=== PATIENT | male | born 1970 | race Caucasian/White ===

== ENCOUNTER 2020-09-28 18:59 | Emergency (ER) | payer BC, OTHER ==
[~2020-09-28 18:59] MED LIST: Iopamidol-370 76% 500 ML 1 ML ONE
[2020-09-28 19:40] LABS: #Basophils 0.1 thou/uL (0.0-0.2); #Lymphocytes 1.3 thou/uL (1.20-3.40); #Monocytes 0.8 thou/uL (0.11-0.59); #Neutrophils 10.3 thou/uL (1.40-6.50); %Basophils 0.4 % (0.0-1.0); %Eosinophils 0.3 % (0.0-10.0); %Lymphocytes 10.5 % (21.0-51.0); %Monocytes 6.3 % (0.0-10.0); %Neutrophils 82.5 % (42.0-75.0); Hemoglobin 14.8 g/dL (14.0-18.0); Mean Corpuscular HGB CONC 33.7 g/dL (32.0-36.0); Mean Platelet Volume 8.5 fL (7.4-10.4); Platelet Count 263 thou/uL (130-400); RBC Distribution Width 11.7 % (11.5-14.5); Red Blood Cell (RBC) Count 4.95 mill/uL (4.70-6.10); White Blood Cell (WBC) Count 12.5 thou/uL (4.8-10.8)
--- NOTE | 2020-09-28 19:44 | RAD ---
FRONTAL RADIOGRAPH CHEST: 09/28/20 COMPARISON: None. HISTORY: Epigastric pain, left sided chest pain. FINDINGS: No pneumothorax, pleural fluid, focal consolidation, or alveolar edema. Heart and mediastinal contour s demonstrate no acute findings. IMPRESSION: No acute findings. POS: CONNIE
[2020-09-28 19:57] LABS: ALT (SGPT) 89 U/L (8-55); AST (SGOT) 130 U/L (5-34); Albumin 4.1 g/dL (3.5-5.0); Alkaline Phosphatase 71 U/L (40-110); Anion Gap 16 mmol/L (10-20); BUN (Urea Nitrogen) 16 mg/dL (8.4-25.7); Bilirubin, Total 1.4 mg/dL (0.2-1.2); CK (CPK) 112 U/L (30-200); Calc. Creatinine Clearance 0 mL/min (70-130); Calcium 9.2 mg/dL (7.8-10.44); Carbon Dioxide 25 mmol/L (22-29); Chloride 104 mmol/L (98-107); Globulin 3.1 g/dL (2.4-3.5); Glucose 169 mg/dL (70-105); Potassium 3.9 mmol/L (3.5-5.1); Protein, Total 7.2 g/dL (6.0-8.3); Sodium 141 mmol/L (136-145)
[2020-09-28] MEDS ORDERED: Ondansetron PF 4 MG/2 ML Vial ONE (20:10)
[2020-09-28] MEDS ORDERED: Morphine 4 MG/ML VIAL ONE (20:10)
[2020-09-28] MEDS ORDERED: Ketorolac Tromethamine 30 MG/ML VIAL ONE (20:10)
[2020-09-28 23:39] LABS: ALT (SGPT) 242 U/L (8-55); AST (SGOT) 325 U/L (5-34); Albumin 3.9 g/dL (3.5-5.0); Alkaline Phosphatase 76 U/L (40-110); Anion Gap 15 mmol/L (10-20); BUN (Urea Nitrogen) 18 mg/dL (8.4-25.7); Bilirubin, Total 1.8 mg/dL (0.2-1.2); Calc. Creatinine Clearance 0 mL/min (70-130); Calcium 8.7 mg/dL (7.8-10.44); Carbon Dioxide 25 mmol/L (22-29); Chloride 106 mmol/L (98-107); Globulin 2.9 g/dL (2.4-3.5); Glucose 132 mg/dL (70-105); Potassium 3.7 mmol/L (3.5-5.1); Protein, Total 6.8 g/dL (6.0-8.3); Sodium 142 mmol/L (136-145)
[2020-09-29] MEDS ORDERED: Morphine 4 MG/ML VIAL ONE (00:32)
--- NOTE | 2020-09-29 08:36 | CT ---
CT PULMONARY ANGIOGRAM WITH IV CONTRAST AND 3D MIP RECONSTRUCTIONS: PROVIDED CLINICAL HISTORY: Chest pain. FINDINGS: There is no evidence for central or segmental pulmonary embolus. The lungs are free of significant o pacity. No pleural fluid or pneumothorax apparent. The airway appears patent and of normal caliber. There is no evidence for thoracic lymph node enlargement. The osseous structures demonstrate no co ncerning lytic or blastic lesions. The visualized portions of the upper abdomen appear unremarkable. IMPRESSION: No evidence for central or segmental pulmonary embolus. POS: SHELBY
--- NOTE | 2020-09-29 08:39 | CT ---
CT ABDOMEN AND PELVIS WITH IV CONTRAST: DATE: 09/28/2020. PROVIDED CLINICAL HISTORY: Abdominal pain. FINDINGS: Bibasilar subsegmental atelectatic changes are seen. The solid abdominal organs demonstrate an unremarkable CT appearance. Changes of prior cholecystecto my are seen. There is no bowel dilatation, inflammatory fat stranding, free fluid, or free air apparent. There is no evidence for appendicitis. The regional major vascular structures appear unremarkable. The osseous structures demonstrate no concerning lytic or blastic lesions. Prominent lumbar degenera tive changes are seen. IMPRESSION: No evidence for an acute process. POS: SHELBY
--- NOTE | 2020-10-02 12:16 | EKG ---
Test Reason : Blood Pressure : / mmHG Vent. Rate : 076 BPM Atrial Rate : 076 BPM P-R Int : 138 ms QRS Dur : 080 ms QT Int : 382 ms P-R-T Axes : 006 025 011 degrees QTc Int : 429 ms Normal sinus rhythm Septal infarct , age undetermined Abnormal ECG Confirmed by MAUREEN WYNN ([id number]), content editor GAL BAILEY ([id number]) on 10/02/2020 12:15:43 PM Referred By: Confirmed By:MAUREEN WYNN
== END 2020-09-29 01:49 | disposition short-term general hospital (02) ==
LOC: ERS 18:59
DX: K80.51 Calculus of bile duct without cholangitis or cholecystitis with obstruction (principal)
CPT/HCPCS: 36415; 71045; 71275; 74177; 80053; 82550; 83690; 84484; 85025; 85379; 93005; 94760; 96374; 96375; 96376; J1885; J2270; J2405; Q9967